=== PATIENT | female | born 1995 | race Caucasian/White ===

== ENCOUNTER 2016-12-09 13:55 | Emergency (ER) | payer BC, SELFPAY ==
[~2016-12-09] VITALS: Ht 160 cm; Wt 68.9 kg
[2016-12-09 13:56] VITALS: BP 134/78
== END 2016-12-09 14:27 | disposition home or self-care (01) ==
LOC: M ED 14:23
DX: R59.0 Localized enlarged lymph nodes (principal)

== ENCOUNTER → 2017-08-06 | Outpatient (REF) | payer OTHER, MEDICAID ==
[2017-08-06 14:02] LABS: BASO # 0.1 10^3/uL (0.0-0.2); BASO % 0.7 % (0.0-1.0); EOS # 0.2 10^3/uL (0.0-0.50); EOS % 2.5 % (0.0-3.0); IMMATURE GRANULOCYTE % 0.4 % (0-0); LYMPH # 1.8 10^3/uL (1.5-6.5); LYMPH % 25.4 % (24.0-44.0); MEAN CORPUSCULAR HEMOGLOBIN 29.1 pg (27.0-33.0); MEAN CORPUSCULAR HGB CONC 32.8 g/dl (32.0-36.5); MEAN CORPUSCULAR VOLUME 88.8 fl (80.0-96.0); MONO # 0.4 10^3/uL (0.0-0.8); MONO % 5.3 % (0.0-5.0); NEUTROPHILS # 4.6 10^3/uL (1.8-7.7); NEUTROPHILS % 65.7 % (36.0-66.0); PLATELET COUNT, AUTOMATED 295 10^3/uL (150-450); WHITE BLOOD COUNT 6.9 10^3/uL (4.0-10.0)
[2017-08-06 14:17] LABS: ALBUMIN 3.7 GM/DL (3.2-5.2); ALKALINE PHOSPHATASE 80 U/L (45-117); ALT/SGPT 20 U/L (12-78); ANION GAP 8 MEQ/L (8-16); AST/SGOT 9 U/L (7-37); BILIRUBIN,TOTAL 0.3 MG/DL (0.2-1.0); BLOOD UREA NITROGEN 10 MG/DL (7-18); CALCIUM LEVEL 8.8 MG/DL (8.5-10.1); CARBON DIOXIDE LEVEL 26 MEQ/L (21-32); CHLORIDE LEVEL 106 MEQ/L (98-107); CREATININE FOR GFR 0.81 MG/DL (0.55-1.02); GLUCOSE, FASTING 120 MG/DL (70-105); POTASSIUM SERUM 3.8 MEQ/L (3.5-5.1); SODIUM LEVEL 140 MEQ/L (136-145); TOTAL PROTEIN 7.4 GM/DL (6.4-8.2)
[2017-08-06 14:48] LABS: ERYTHROCYTE SEDIMENTATION RATE 56 mm/hr (0-20)
== END ==
LOC: M LAB REF 13:19
PROVIDERS: ATTEND Nurse Practitioner Adult Health
DX: M25.50 Pain in unspecified joint (principal)

== ENCOUNTER 2018-04-25 21:25 | Emergency (ER) | payer OTHER, MEDICAID ==
[2018-04-26] MEDS: CYCLOBENZAPRINE 5MG TABLET PO (00:20)
== END 2018-04-26 00:38 | disposition home or self-care (01) ==
LOC: M ED 21:25
DX: M62.830 Muscle spasm of back (principal)
CPT/HCPCS: 99282

== ENCOUNTER → 2018-05-01 | Outpatient (CLI) | payer OTHER ==
[2018-05-01 22:38] LABS: FREE THYROXINE INDEX 4.4 % (1.3-4.8); T UPTAKE 35 % (30-39); THYROXINE (T4) 12.7 UG/DL (4.5-12.0)
[2018-05-04 00:06] LABS: THYROID STIMULATING IMMUNOGLOB <0.10 IU/L (0.00-0.55)
== END ==
LOC: M LAB 14:46
DX: E66.3 Overweight (principal)
CPT/HCPCS: 84443

== ENCOUNTER 2018-07-21 03:42 | Emergency (ER) | payer OTHER, SELFPAY ==
[2018-07-21 07:21] LABS: BASO # 0.1 10^3/uL (0.0-0.2); BASO % 0.4 % (0.0-1.0); EOS # 0.2 10^3/uL (0.0-0.50); EOS % 1.5 % (0.0-3.0); HEMATOCRIT 40.8 % (36.0-47.0); HEMOGLOBIN 13.6 g/dl (12.0-15.5); IMMATURE GRANULOCYTE % 0.5 % (0-3.0); LYMPH # 2.9 10^3/uL (1.5-6.5); MEAN CORPUSCULAR HEMOGLOBIN 28.7 pg (27.0-33.0); MEAN CORPUSCULAR HGB CONC 33.3 g/dl (32.0-36.5); MEAN CORPUSCULAR VOLUME 86.1 fl (80.0-96.0); MONO # 0.7 10^3/uL (0.0-0.8); MONO % 5.8 % (0.0-5.0); NEUTROPHILS # 7.4 10^3/uL (1.8-7.7); NEUTROPHILS % 65.8 % (36.0-66.0); PLATELET COUNT, AUTOMATED 269 10^3/uL (150-450); RED BLOOD COUNT 4.74 10^6/uL (4.00-5.40); RED CELL DISTRIBUTION WIDTH 12.1 % (11.5-14.5); WHITE BLOOD COUNT 11.2 10^3/uL (4.0-10.0)
[2018-07-21 07:38] LABS: D-DIMER QUANT 272.22 ng/ml (<500)
[2018-07-21 07:45] LABS: ALBUMIN 3.8 GM/DL (3.2-5.2); ALBUMIN/GLOBULIN RATIO 1.12 (1.00-1.93); ALKALINE PHOSPHATASE 72 U/L (45-117); ALT/SGPT 19 U/L (12-78); ANION GAP 8 MEQ/L (8-16); AST/SGOT 15 U/L (7-37); BILIRUBIN,DIRECT < 0.1 MG/DL (0.0-0.2); BILIRUBIN,TOTAL 0.3 MG/DL (0.2-1.0); BLOOD UREA NITROGEN 9 MG/DL (7-18); C REACTIVE PROTEIN QUANTITATIV 0.89 MG/DL (0.00-0.30); CALCIUM LEVEL 8.8 MG/DL (8.5-10.1); CARBON DIOXIDE LEVEL 23 MEQ/L (21-32); CHLORIDE LEVEL 108 MEQ/L (98-107); CK-MB VALUE MASS < 1.0 NG/ML (<3.6); CPK CREATINE PHOSPHOKINASE 65 U/L (26-192); GLOMERULAR FILTRATION RATE > 60.0 (>60); GLUCOSE, FASTING 83 MG/DL (70-100); LIPASE 110 U/L (73-393); MB/CK RELATIVE INDEX 1.54 (< OR =4); POTASSIUM SERUM 4.1 MEQ/L (3.5-5.1); SODIUM LEVEL 139 MEQ/L (136-145); TOTAL PROTEIN 7.2 GM/DL (6.4-8.2); TROPONIN I < 0.02 NG/ML (< 0.10)
[2018-07-21 07:55] LABS: ERYTHROCYTE SEDIMENTATION RATE 29 mm/hr (0-20)
[2018-07-21] MEDS ORDERED: NS 1,000 ML IV (08:30)
== END 2018-07-21 08:59 | disposition home or self-care (01) ==
LOC: M ED 03:42
DX: R07.1 Chest pain on breathing (principal); R06.00 Dyspnea, unspecified; M35.9 Systemic involvement of connective tissue, unspecified; M19.072 Primary osteoarthritis, left ankle and foot
CPT/HCPCS: 93005

== ENCOUNTER → 2018-08-01 | Outpatient (CLI) | payer OTHER ==
[2018-08-01 18:02] LABS: BASO % 0.4 % (0.0-1.0); EOS # 0.1 10^3/uL (0.0-0.50); EOS % 1.3 % (0.0-3.0); HEMATOCRIT 41.4 % (36.0-47.0); HEMOGLOBIN 13.7 g/dl (12.0-15.5); IMMATURE GRANULOCYTE % 0.5 % (0-3.0); LYMPH % 20.5 % (24.0-44.0); MEAN CORPUSCULAR HEMOGLOBIN 28.8 pg (27.0-33.0); MEAN CORPUSCULAR HGB CONC 33.1 g/dl (32.0-36.5); MEAN CORPUSCULAR VOLUME 87.2 fl (80.0-96.0); MONO # 0.6 10^3/uL (0.0-0.8); MONO % 6.2 % (0.0-5.0); NEUTROPHILS # 6.8 10^3/uL (1.8-7.7); NEUTROPHILS % 71.1 % (36.0-66.0); PLATELET COUNT, AUTOMATED 271 10^3/uL (150-450); RED BLOOD COUNT 4.75 10^6/uL (4.00-5.40); RED CELL DISTRIBUTION WIDTH 12.2 % (11.5-14.5); WHITE BLOOD COUNT 9.5 10^3/uL (4.0-10.0)
[2018-08-01 20:54] LABS: CHLAMYDIA DNA AMPLIFICATION NEGATIVE (NEGATIVE); GC DNA AMPLIFICATION NEGATIVE (NEGATIVE)
[2018-08-02 12:44] LABS: HEPATITIS C VIRUS ABY INDEX 0.1 INDEX (<0.8)
[2018-08-02 12:44] LABS: HBsAg Prenatal NEGATIVE (NEGATIVE); HIV 1&2 SCREEN CENTAUR NEGATIVE (NEGATIVE); RUBELLA IgG QUALITATIVE IMMUNE (IMMUNE)
== END ==
LOC: M SMT 11:00
DX: Z36.89 Encounter for other specified antenatal screening (principal)
CPT/HCPCS: 86762

== ENCOUNTER 2018-08-13 20:36 | Emergency (ER) | payer OTHER ==
[~2018-08-13] VITALS: Ht 157.5 cm; Wt 74.5 kg
[~2018-08-13 20:36] MED LIST: CYCL5TAB PO; PRED20TA PO
[2018-08-13] MEDS ORDERED: PREN1CHW PO (21:57)
[2018-08-13 21:59] LABS: BASO # 0.1 10^3/uL (0.0-0.2); BASO % 0.4 % (0.0-1.0); EOS # 0.3 10^3/uL (0.0-0.50); HEMATOCRIT 37.8 % (36.0-47.0); LYMPH # 2.5 10^3/uL (1.5-6.5); LYMPH % 21.8 % (24.0-44.0); MEAN CORPUSCULAR HEMOGLOBIN 29.5 pg (27.0-33.0); MEAN CORPUSCULAR HGB CONC 34.4 g/dl (32.0-36.5); MEAN CORPUSCULAR VOLUME 85.7 fl (80.0-96.0); MONO # 0.7 10^3/uL (0.0-0.8); MONO % 6.1 % (0.0-5.0); NEUTROPHILS # 7.7 10^3/uL (1.8-7.7); NEUTROPHILS % 68.3 % (36.0-66.0); PLATELET COUNT, AUTOMATED 246 10^3/uL (150-450); RED BLOOD COUNT 4.41 10^6/uL (4.00-5.40); WHITE BLOOD COUNT 11.3 10^3/uL (4.0-10.0)
[2018-08-13 22:23] LABS: CK-MB VALUE MASS < 1.0 NG/ML (<3.6); CPK CREATINE PHOSPHOKINASE 98 U/L (26-192); MB/CK RELATIVE INDEX 1.02 (< OR =4); TROPONIN I < 0.02 NG/ML (< 0.10)
[2018-08-13 22:30] VITALS: BP 108/71
--- NOTE | 2018-08-14 14:56 | ECGEPIP ---
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
== END 2018-08-13 22:55 | disposition home or self-care (01) ==
LOC: M ED 20:36
DX: O99.341 Other mental disorders complicating pregnancy, first trimester (principal); F41.1 Generalized anxiety disorder; R06.00 Dyspnea, unspecified; Z3A.09 9 weeks gestation of pregnancy

== ENCOUNTER → 2018-08-30 | Outpatient (CLI) | payer OTHER ==
[~2018-08-30] MED LIST changes: +PREN1CHW PO
== END ==
LOC: M SMT 08:32
PROVIDERS: ATTEND Advanced Practice Midwife
DX: Z34.81 Encounter for supervision of other normal pregnancy, first trimester (principal)

== ENCOUNTER → 2018-10-30 | Outpatient (CLI) | payer OTHER ==
--- NOTE | 2018-10-30 17:50 | REP ---
Clinical: Anatomical evaluation. Comparison: None . Findings: Examination demonstrates a single live intrauterine in variable presentation. motion is identified by technologist. Placenta is noted anterior and grade grade 1 without evidence for placenta previa or abruption. Amniotic fluid volume is normal. Cervix measures 4.7 cm in length and appears closed. No evidence for nuchal cord. Gestational age by LMP 21 weeks 2 days with SUKHI 03/10/2019 . Gestational age by current measurements 22 weeks 0 days with SUKHI 03/05/2019 . FHR equals 136 beats per minute. BPD 5.5 cm 22 weeks 4 days HC 18.8 cm 21 weeks 0 days AC 17.4 cm 22 weeks 2 days FL 4.0 cm 22 weeks 5 days HL 3.3 cm 21 weeks 2 days HC/AC ratio 1.08 Estimated weight 497 grams ( 83rd percentile). Anatomical assessment demonstrates normal structures including cranium, choroid plexus, cavum, cerebellum/posterior fossa, facial features, lungs, four-chamber heart/ventricular outflow tracts, diaphragm, stomach, cord insertion/three-vessel cord, kidneys/bladder, spine, and extremities. Impression: Single live intrauterine in variable presentation demonstrating appropriate interval growth. 2. Anatomical assessment is complete and normal. No gross abnormalities are identified. Electronically Signed by Gabriel Dennis MD 10/30/2018 05:40 P
== END ==
LOC: M RAD 10:23
PROVIDERS: ATTEND Advanced Practice Midwife
DX: O99.342 Other mental disorders complicating pregnancy, second trimester (principal); Z3A.22 22 weeks gestation of pregnancy

== ENCOUNTER → 2018-11-05 | Outpatient (REF) | payer OTHER | LOC: M LAB REF 16:59 | PROVIDERS: ATTEND Advanced Practice Midwife | DX: Z34.82 Encounter for supervision of other normal pregnancy, second trimester (principal) ==

== ENCOUNTER → 2018-12-12 | Outpatient (CLI) | payer OTHER ==
[2018-12-12 14:06] LABS: BASO # 0.1 10^3/uL (0.0-0.2); BASO % 0.4 % (0.0-1.0); EOS # 0.2 10^3/uL (0.0-0.50); EOS % 1.7 % (0.0-3.0); LYMPH % 14.6 % (24.0-44.0); MEAN CORPUSCULAR HEMOGLOBIN 29.1 pg (27.0-33.0); MEAN CORPUSCULAR HGB CONC 32.4 g/dl (32.0-36.5); MEAN CORPUSCULAR VOLUME 89.9 fl (80.0-96.0); MONO # 1.1 10^3/uL (0.0-0.8); MONO % 7.8 % (0.0-5.0); NEUTROPHILS # 9.9 10^3/uL (1.8-7.7); NEUTROPHILS % 72.9 % (36.0-66.0); PLATELET COUNT, AUTOMATED 261 10^3/uL (150-450); RED BLOOD COUNT 3.78 10^6/uL (4.00-5.40); WHITE BLOOD COUNT 13.5 10^3/uL (4.0-10.0)
== END ==
LOC: M SMT 08:45
PROVIDERS: ATTEND Advanced Practice Midwife
DX: Z34.82 Encounter for supervision of other normal pregnancy, second trimester (principal); Z3A.00 Weeks of gestation of pregnancy not specified

== ENCOUNTER 2019-01-02 16:57 | Outpatient (CLI) | payer OTHER ==
[~2019-01-02] VITALS: Ht 157.5 cm; Wt 86.2 kg
[2019-01-02 17:17] VITALS: BP 111/58
[2019-01-02] MEDS ORDERED: TUMS750C5 PO (17:21)
[2019-01-02] MEDS ORDERED: ONDANSETRON 4 MG ORAL DISINTEGRATING TAB (Q0162 PER 1MG) SL PRN (17:45)
[2019-01-02 17:59] LABS: HEMATOCRIT 34.3 % (36.0-47.0); HEMOGLOBIN 11.2 g/dl (12.0-15.5); MEAN CORPUSCULAR HEMOGLOBIN 28.9 pg (27.0-33.0); MEAN CORPUSCULAR HGB CONC 32.7 g/dl (32.0-36.5); MEAN CORPUSCULAR VOLUME 88.4 fl (80.0-96.0); PLATELET COUNT, AUTOMATED 244 10^3/uL (150-450); RED BLOOD COUNT 3.88 10^6/uL (4.00-5.40); WHITE BLOOD COUNT 12.1 10^3/uL (4.0-10.0)
[2019-01-02 18:28] LABS: ALBUMIN 2.5 GM/DL (3.2-5.2); ALT/SGPT 15 U/L (12-78); AMYLASE 38 U/L (25-115); BILIRUBIN,TOTAL 0.2 MG/DL (0.2-1.0); BLOOD UREA NITROGEN 5 MG/DL (7-18); CALCIUM LEVEL 8.4 MG/DL (8.5-10.1); CARBON DIOXIDE LEVEL 22 MEQ/L (21-32); CHLORIDE LEVEL 108 MEQ/L (98-107); GLOMERULAR FILTRATION RATE > 60.0 (>60); GLUCOSE, FASTING 126 MG/DL (70-100); LIPASE 119 U/L (73-393); POTASSIUM SERUM 3.6 MEQ/L (3.5-5.1); SODIUM LEVEL 139 MEQ/L (136-145); TOTAL PROTEIN 7.3 GM/DL (6.4-8.2)
[2019-01-02] MEDS ORDERED: ONDA4TAB6 SL (19:35)
[2019-01-02] MEDS ORDERED: LACTATED RINGER'S 1000 ML IV STA (19:47)
[2019-01-02 20:44] VITALS: BP 100/57
[2019-01-02 20:53] LABS: APPEARANCE, URINE CLEAR (CLEAR); BACTERIA, URINE AUTO NEGATIVE (NEGATIVE); BILIRUBIN, URINE AUTO NEGATIVE (NEGATIVE); BLOOD, URINE BLOOD NEGATIVE (NEGATIVE); COLOR, URINE YELLOW (YELLOW); GLUCOSE, URINE (UA) AUTO NEGATIVE (NEGATIVE); KETONE, URINE AUTO NEGATIVE (NEGATIVE); LEUKOCYTE ESTERASE, URINE AUTO NEGATIVE (NEGATIVE); MUCUS, URINE SMALL (NEGATIVE); NITRITE, URINE AUTO NEGATIVE (NEGATIVE); PROTEIN, URINE AUTO NEGATIVE (NEGATIVE); RBC, URINE AUTO 0 /HPF (0-3); SPECIFIC GRAVITY URINE AUTO 1.009 (1.002-1.035); SQUAMOUS EPITHELIAL CELL UR AU 0 /HPF (0-6); UROBILINOGEN, URINE AUTO 0.2 mg/dL (0.0-2.0); WBC, URINE AUTO 2 /HPF (0-3)
== END 2019-01-02 20:55 | disposition home or self-care (01) ==
LOC: M LDO 16:57
PROVIDERS: ATTEND Obstetrics & Gynecology
DX: O21.2 Late vomiting of pregnancy (principal)
CPT/HCPCS: 36415; 59025; 76815; 80053; 81001; 82150; 83690; 85027; 87086; 96360; Q0162

== ENCOUNTER 2019-02-10 04:49 | Outpatient (CLI) | payer OTHER ==
[~2019-02-10] VITALS: Ht 157.5 cm; Wt 91.6 kg
[~2019-02-10 04:49] MED LIST changes: +ONDA4TAB6 SL; +TUMS750C5 PO
[2019-02-10 05:04] VITALS: BP 124/67
[2019-02-10 07:06] VITALS: BP 124/71
--- NOTE | 2019-02-10 11:56 | IPNPDOC ---
Text Note Date of Service The patient was seen on 02/10/19. NOTE Subjective: Patient is a 23-year-old female who is a at 35.2 weeks gestation. She initiated care in her first trimester at [facility]. Her has been complicated by anxiety. She he reports having an earache, anxiety, and pelvic pain making it difficult to sleep. Reports her pain is sharp and shooting her her right hip area and gets worse when she is turning side to side in bed. S he hasn't taken anything to help with her pain. She reports irregular contractions. Patient also complaining of anxiety that has gotten worse with occasional panic attacks. She desires to start taking something for anxiety. She denies suicidal thought or ideations. She denies homicidal thoughts. She denies depression but reports increased anxiety. Objective: FHR is 130, moderate variability, positive accelerations, no decelerations. Contractions: irregular. SVE: FT/thick/high, soft, midposition. A+Ox3. Respiratory: regular rate with no use of accessory muscles. Abdomen: gravid and non tender to touch. Extremities: generalized edema without pitting and no clonus. Skin: no rash noted on her back. Assessment: IUP at 35.2 weeks gestation, generalized anxiety, pelvic pain, not in labor, Category I FHR tracing. Plan: Reviewed medication options with patient. She has decided on Zoloft. Will start patient on Zoloft 25 mg daily. Reviewed side effects of medication including but not limited to suicidal ideations, GI effects, and decreased sexual desire. Patient instructed to not abruptly stop taking medication. Reviewed comfort measures for hip pain. She was advised to take Tylenol for ear pain and if it does not improve she needs to see PCP or urgent care to be e valuated. Reviewed comfort measures for sleeping. Patient may take Benadryl to help with her itching on her back and to help her sleep. Patient is to follow-up for routine OB appointment on Sunday. Reviewed labor signs, kick count, and danger signs to report. VS,Fishbone, I+O VS, Fishbone, I+O Vital Signs Date Time Temp Pulse Resp B/P (MAP) Pulse Ox O2 Delivery O2 Flow Rate FiO2 02/10/19 07:06 99.0 92 124/71 (88) 02/10/19 07:05 16 ALY CRISOSTOMO CNM Feb 10, 2019 11:56
== END 2019-02-10 07:56 | disposition home or self-care (01) ==
LOC: M LDO 04:49
PROVIDERS: ATTEND Obstetrics & Gynecology
DX: O26.893 Other specified pregnancy related conditions, third trimester (principal); R10.30 Lower abdominal pain, unspecified; O99.89 Other specified diseases and conditions complicating pregnancy, childbirth and the puerperium; H92.09 Otalgia, unspecified ear; O99.345 Other mental disorders complicating the puerperium; F41.9 Anxiety disorder, unspecified; O47.03 False labor before 37 completed weeks of gestation, third trimester; Z3A.35 35 weeks gestation of pregnancy

== ENCOUNTER → 2019-02-17 | Outpatient (REF) | payer OTHER ==
[~2019-02-17] MED LIST changes: +BENA25CA4 PO
== END ==
LOC: M LAB REF 12:43
PROVIDERS: ATTEND Advanced Practice Midwife
DX: Z34.83 Encounter for supervision of other normal pregnancy, third trimester (principal)

== ENCOUNTER → 2019-02-18 | Outpatient (CLI) | payer OTHER ==
[~2019-02-18] MED LIST changes: +ACET160S3 PO; +AUGM500T34 PO; +CHERLOZ MT
--- NOTE | 2019-02-18 16:48 | REP ---
Clinical: Growth evaluation. Comparison: 10/30/2018 . Findings: Examination demonstrates a single live intrauterine in cephalic presentation. motion is identified by technologist. Placenta is noted anterior and grade one without evidence for placenta previa or abruption. Amniotic fluid volume is normal. Cervix appears closed. Gestational age by LMP 37 weeks 1 day with SUKHI 03/10/2019 . Gestational age by current measurements 38 weeks 5 days with SUKHI 02/27/2019 . FHR equals 144 beats per minute. BPD 9.6 cm 39 weeks 0 days HC 33.5 cm 38 weeks 3 days AC 35.9 cm 39 weeks 6 days FL 7.4 cm 37 weeks 4 days HL 6.7 cm 39 weeks 1 day HC/AC ratio 0.93 Estimated weight 3687 grams ( 89th percentile). Amniotic fluid index: 13.1 cm (7.5 - 24.4) Umbilical cord SD ratio: 2.25 (1.60 - 2.60). Impression: Single live intrauterine in cephalic presentation demonstrating appropriate interval growth. Electronically Signed by Gabriel Dennis MD 02/18/2019 04:39 P
== END ==
LOC: M RAD 15:38
PROVIDERS: ATTEND Advanced Practice Midwife
DX: O26.843 Uterine size-date discrepancy, third trimester (principal); Z3A.39 39 weeks gestation of pregnancy

== ENCOUNTER 2019-02-26 21:19 | Outpatient (CLI) | payer OTHER ==
[~2019-02-26] VITALS: Ht 157.5 cm; Wt 92.4 kg
[~2019-02-26 21:19] MED LIST changes: -ACET160S3 PO; -AUGM500T34 PO; -BENA25CA4 PO; -CHERLOZ MT
[2019-02-26 21:41] VITALS: BP 136/80
[2019-02-26] MEDS ORDERED: BENA25CA4 PO (21:55)
--- NOTE | 2019-02-26 22:26 | IPN ---
DATE: 02/26/2019 Carlos A is a 23-year-old, 1, para 0, at 37-4/7 weeks gestation, estimated date of confinement (EDC) of 03/15/2019 based on first-trimester ultrasound presents to labor and delivery today with a question of rupture of membranes at approximately 1845. Reports she had a large gush of fluid, some scant fluid following that. Denies any regular painful contractions, vaginal bleeding. The fetus has been active. care was initiated at [facility] in the first trimester. course complicated by anxiety with initiating Zoloft treatment approximately 1 month ago and joint hypermobility. OBSTETRICAL HISTORY: Primigravida. OBSTETRIC LABORATORIES: AB positive, antibody screen negative. Rubella immune. VDRL nonreactive. Urine culture: No growth. Hepatitis B surface antigen negative, HIV negative, hepatitis C antibody nonreactive. Gonorrhea and chlamydia negative. Panorama testing negative for aneuploidy. Male fetus. Gestational diabetic screening normal at 102. GBS is negative. Urine culture: No growth. PAST MEDICAL HISTORY: 1. Anxiety. 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 SURGERIES: None. FAMILY HISTORY: Diabetes, hypertension, breast cancer. SOCIAL HISTORY: The patient is single; however the father of the baby is at bedside and supportive. She is a nonsmoker. Denies alcohol and drug use. No history of any sexually transmitted infections and denies history of abuse, physical, sexual, and emotional. ALLERGIES: No known drug allergies. CURRENT MEDICATIONS: Zoloft 25 mg daily and vitamin daily. OBJECTIVE: Blood pressure (BP) is 136/80. She is alert and oriented times three. She is in no apparent distress. She is smiling and talkative. The heart rate is 135 with moderate variability. Positive accelerations. No decelerations observed. An occasional contraction. Sterile speculum exam: Negative Valsalva. Negative pooling. Negative Nitrazine. Negative ferning. Sterile vaginal exam: 1 cm dilated, 50% effaced, -3 station, posterior, soft. No bloody show with the exam. ASSESSMENT: Intrauterine at 37-4/7 weeks. heart rate category 1. Not in labor and not ruptured. PLAN: Discharge the patient home. I reviewed signs and symptoms of active labor, kick counts, and other danger signs to report. I reviewed access to care. She is to keep her next appointment, which is scheduled in approximately 6 days from now. The patient and her partner have had all their questions answered and agree with the plan.
== END 2019-02-26 22:17 | disposition home or self-care (01) ==
LOC: M LDO 21:19
PROVIDERS: ATTEND Advanced Practice Midwife
DX: O26.892 Other specified pregnancy related conditions, second trimester (principal); N89.8 Other specified noninflammatory disorders of vagina; Z3A.37 37 weeks gestation of pregnancy

== ENCOUNTER 2019-03-04 15:59 | Emergency (ER) | payer OTHER ==
[~2019-03-04] VITALS: Ht 160 cm; Wt 92.6 kg
[2019-03-04 15:59] VITALS: BP 122/79
[~2019-03-04 15:59] MED LIST changes: +BENA25CA4 PO
[2019-03-04] MEDS ORDERED: ACET160S3 PO (16:05)
[2019-03-05] MEDS ORDERED: CHERLOZ MT (16:36)
== END 2019-03-04 16:55 | disposition admitted as inpatient to this hospital (09) ==
LOC: M ED 15:59
DX: O99.413 Diseases of the circulatory system complicating pregnancy, third trimester (principal); R07.9 Chest pain, unspecified; Z3A.38 38 weeks gestation of pregnancy; Z79.899 Other long term (current) drug therapy

== ENCOUNTER 2019-03-04 16:55 | Outpatient (CLI) | payer OTHER ==
[~2019-03-04] VITALS: Ht 160 cm; Wt 92.5 kg
[~2019-03-04 16:55] MED LIST changes: +ACET160S3 PO
[2019-03-04 17:10] VITALS: BP 112/68
[2019-03-04 17:24] VITALS: BP 113/67
[2019-03-04 17:34] VITALS: BP 112/73
[2019-03-04 17:44] VITALS: BP 109/75
[2019-03-04 17:54] VITALS: BP 107/71
[2019-03-05] MEDS ORDERED: CHERLOZ MT (16:36)
== END 2019-03-04 19:20 | disposition home or self-care (01) ==
LOC: M LDO 16:55
PROVIDERS: ATTEND Specialist
DX: O99.89 Other specified diseases and conditions complicating pregnancy, childbirth and the puerperium (principal); J02.9 Acute pharyngitis, unspecified; R07.9 Chest pain, unspecified; R63.0 Anorexia; R51 Headache; Z3A.38 38 weeks gestation of pregnancy

== ENCOUNTER 2019-03-05 16:05 | Inpatient (IN) | payer OTHER ==
[~2019-03-05] VITALS: Ht 157.5 cm; Wt 92.7 kg
[2019-03-05] VITALS (10 sets, daily range): BP systolic 111–137; BP diastolic 68–79
[2019-03-05] MEDS ORDERED: CHERLOZ MT (16:36)
[2019-03-05] MEDS: miSOPROStol 50 MCG 1/2 TAB (S0191) PO SCH ×2 (17:05→21:17)
[2019-03-05 17:10] LABS: HEMATOCRIT 34.3 % (36.0-47.0); HEMOGLOBIN 10.7 g/dl (12.0-15.5); MEAN CORPUSCULAR HGB CONC 31.2 g/dl (32.0-36.5); MEAN CORPUSCULAR VOLUME 83.5 fl (80.0-96.0); PLATELET COUNT, AUTOMATED 234 10^3/uL (150-450); RED BLOOD COUNT 4.11 10^6/uL (4.00-5.40); WHITE BLOOD COUNT 14.9 10^3/uL (4.0-10.0)
--- NOTE | 2019-03-05 17:12 | HPE ---
DATE OF ADMISSION: 03/05/2019 Carlos A is a 23-year-old 1, para 0 at 38-4/7 weeks gestation, estimated date of confinement (EDC) of 03/15/2019 based on first trimester ultrasound. She presents to labor and delivery today following a routine appointment, in which she requested a cervical exam, and during that exam she had spontaneous rupture of membranes. She does report some scant bloody show, continued leakage. The fetus has been active. She does deny contractions. care was initiated [facility] in the first trimester. Her course complicated by a history of anxiety, in which she started Zoloft 25 mg, and joint hypermobility OBSTETRICAL HISTORY: Primigravida. OBSTETRIC LABORATORIES: AB positive, antibody screen negative, rubella immune, VDRL nonreactive. Urine culture: No growth. Hepatitis B surface antigen negative, HIV negative. Hepatitis C antibody nonreactive. Gonorrhea and chlamydia negative. Panorama testing: Low risk for aneuploidy male fetus. Gestational diabetic screening normal at 102, and GBS is negative. PAST MEDICAL HISTORY: 1. Anxiety. 2. Hypermobility joints. SURGERIES: None. FAMILY HISTORY: Diabetes, hypertension, breast cancer, and brain abnormality in the mother. SOCIAL HISTORY: The patient is single; however, the father of the baby is at bedside and appears supportive. She is a nonsmoker. She denies alcohol and drug use. No history of any sexually transmitted infections and denies history of abuse, physical, sexual, and emotional. ALLERGIES: No known drug allergies. CURRENT MEDICATIONS: - Zoloft 25 mg by mouth daily - vitamin daily OBJECTIVE: Vital signs: Complete set has not been taken. Blood pressure is 111/68. She is alert and oriented times three. She does not appear in any discomfort. She is smiling and talkative. heart rate is 145 with moderate variability. Positive accelerations, no decelerations. There is no pattern of contractions. Her abdomen is gravid, cephalic presentation. Estimated weight 3800 grams to 3900 grams. Sterile vaginal exam: Clear fluid noted draining from the vagina, 2 cm dilated, 25% effaced, -3 station, posterior. Scant bloody show with the exam. ASSESSMENT: Intrauterine at 38-4/7 weeks. heart rate is category 1. Premature rupture of membranes. PLAN: Admit the patient to labor and delivery. Routine labs. Out of bed ad darrius. Regular diet at this time. The patient requested an epidural when she is uncomfortable in active labor. I do plan to start misoprostol 50 mcg by mouth for cervical ripening. Will likely augment or initiate labor with Pitocin. I did review risks, benefits, and alternatives with the patient and her family. All of their questions have been answered. She has been verbally consented for emergency surgery as well as blood products if necessary. I do anticipate cervical ripening.
[2019-03-05] MEDS ORDERED: LACTATED RINGER'S 1000 ML IV ONE (17:15)
[2019-03-06] VITALS (42 sets, daily range): BP systolic 95–133; BP diastolic 54–78
[2019-03-06] MEDS: miSOPROStol 50 MCG 1/2 TAB (S0191) PO SCH (02:44)
[2019-03-06] MEDS ORDERED: OXYTOCIN DRIP 30 UNITS in APPROPRIATE DILUENT 1 EA IV SCH ×2 (08:30→17:24)
--- NOTE | 2019-03-06 08:32 | IPNPDOC ---
Obstetrical Progress Note Date of Service Mar 06, 2019 Subjective Pt doing well, starting to feel more uncomfortable with contractions. Continues to leak clear fluid Objective Vital Signs Date Time Temp Pulse Resp B/P (MAP) Pulse Ox O2 Delivery O2 Flow Rate FiO2 03/06/19 07:44 98.0 104 16 123/75 (91) Assessment Heart Rate (FHR): 130 Variability: Moderate Accelerations: Positive Decelerations: None Heart Rate Tracing: Category I Tocometer Contractions: Yes Frequency: regular, every 1-5 min. Sterile Vaginal Examination Dilation: 4 cm Effacement (%): 80% Station: -2 Cervical Consistency: Soft Cervical Position: Middle Assessment and Plan Additional Comments 23 yo G1 at 38 5/7 undergoing IOL for SROM SVE now favorable, will start pitocin FWB reassuring GBS negative COREY SABA PGY-3 Mar 06, 2019 08:32
[2019-03-06] MEDS: LR 1,000 ML IV SCH ×2 (10:05→16:52)
[2019-03-06] MEDS ORDERED: FENTANYL 2MCG/ML ROPIVACAINE 0.2% IN 0.9% NACL 100ML IVBAG As Ordered ONE (10:19)
[2019-03-06] MEDS ORDERED: EPIDURAL COMMENT XX SCH (11:00)
[2019-03-06] MEDS ORDERED: EPIDURAL/PCA KEYS XX PRN (11:00)
[2019-03-06] MEDS ORDERED: REFRIGERATOR IV KEYS XX PRN (11:00)
[2019-03-06] MEDS ORDERED: ONDANSETRON 4MG/2ML VIAL (J2405) IV PRN (11:00)
[2019-03-06] MEDS ORDERED: diphenhydrAMINE INJ 50MG/ML VIAL (J1200) IV PRN (11:00)
[2019-03-06] MEDS ORDERED: FENTANYL/ROPIVACAINE/NACL BAG 100 ML EPIDURAL SCH (11:00)
[2019-03-06] MEDS ORDERED: NALOXONE INJ 0.4 MG/1 ML VIAL (J2310) IV PRN (11:00)
[2019-03-06] MEDS ORDERED: ePHEDrine SULFATE 25 MG/5 ML(5MG/ML) SYRINGE IV PRN (11:00)
[2019-03-06] MEDS ORDERED: IBUPROFEN 600 MG TAB PO PRN (17:30)
[2019-03-06] MEDS ORDERED: ACETAMINOPHEN 500 MG TAB PO PRN (17:30)
[2019-03-06] MEDS ORDERED: ANUSOL HC CREAM 30GM TOP PRN (17:30)
[2019-03-06] MEDS ORDERED: MEASLES,MUMPS,RUBELLA VACCINE INJ (MMR-II) (90707) SC SCH (17:30)
[2019-03-06] MEDS ORDERED: DIBUCAINE 1% OINTMENT 30GM TOP PRN (17:30)
[2019-03-06] MEDS ORDERED: RHOGAM 300 MCG (1500 IU) INJ (J2790) IM SCH (17:30)
[2019-03-06] MEDS ORDERED: ACETAMINOPHEN TAB 650MG DOSE (2X325MG) PO PRN (17:30)
[2019-03-06] MEDS ORDERED: METHYLERGONOVINE MALEATE 0.2 MG TAB PO PRN (17:30)
[2019-03-06] MEDS ORDERED: MOM 30ML SUSPENSION UDC PO PRN (17:30)
[2019-03-06] MEDS ORDERED: DOCUSATE SODIUM 100 MG CAP PO PRN (17:30)
--- NOTE | 2019-03-06 17:37 | DNPDOC ---
[facility] Delivery Note Delivery Note DATE OF DELIVERY: 03/06/19 PREDELIVERY DIAGNOSIS: 39 6/7 weeks' gestation and labor. POST DELIVERY DIAGNOSIS: Delivered. PROCEDURE: Spontaneous vaginal delivery. MANAGER SCHOOL: Dr. Whaley, Dr. Galloway ANESTHESIA: Epidural ESTIMATED BLOOD LOSS: 350 mL. FINDINGS: 3250g , Score 9/9, nuchal cord times 1. DELIVERY SUMMARY: Patient is a 23 yo G1 who presented at 39 5/7 wks with SROM. She underwent induction of labor. She was started on pitocin this morning and her labor progressed. She became fully dilated at 1645. She pushed for 30 min and delivered a liveborn male infant over a 2nd degree laceration. Tight nuchal cord x1, delivered through. Baby to maternal abdomen. Cord clamped after 30 s delay. Placenta delivered spontaneously, in tact. 2nd degree repaired in usual fashion with 3-0 vicryl. Small periurethral on the R repaired with 4-0 vicryl. All counts correct. COREY GALLOWAY PGY-3 Mar 06, 2019 17:37
[2019-03-06] MEDS ORDERED: SLF 3 ML SYR IV PRN (18:45)
[2019-03-06] MEDS: IBUPROFEN 800 MG TAB PO PRN (18:49)
[2019-03-06] MEDS: SLF 3 ML SYR IV SCH (22:30)
[2019-03-07 06:00] VITALS: BP 111/62
[2019-03-07] MEDS: SLF 3 ML SYR IV SCH ×2 (06:27→14:00)
[2019-03-07] MEDS: PRENATAL VITAMINS CHEWABLE TABLET PO SCH (07:18)
--- NOTE | 2019-03-07 07:29 | NUR ---
PPD#1 S: Doing well w/o complaints. Decrease lochia. Pain well controlled. O: vss, AF gen: well appearing abd: soft, nttp, FF@u-2 ext: neg calf tenderness A/P: 23yo s/p NSD recovering in stable condition -cont routine care -d/c plans for tomorrow Bria Whaley MD
[2019-03-07] MEDS: IBUPROFEN 800 MG TAB PO PRN (10:39)
[2019-03-07] MEDS: CETIRIZINE (ZyrTEC) 10 MG TAB PO SCH (12:00)
[2019-03-07] MEDS: AMOXICILLIN 500 MG CAP PO SCH ×2 (14:34→22:17)
[2019-03-07 18:00] VITALS: BP 117/62
[2019-03-08] MEDS: IBUPROFEN 800 MG TAB PO PRN (03:18)
[2019-03-08] MEDS: AMOXICILLIN 500 MG CAP PO SCH (06:10)
[2019-03-08 06:32] VITALS: BP 114/66
[2019-03-08] MEDS: PRENATAL VITAMINS CHEWABLE TABLET PO SCH (08:07)
[2019-03-08] MEDS: CETIRIZINE (ZyrTEC) 10 MG TAB PO SCH (08:07)
[2019-03-09] MEDS ORDERED: AUGM500T34 PO (02:27)
== END 2019-03-08 11:43 | disposition home or self-care (01) | DRG 560 ==
LOC: M LDI 16:05 → M OBS 03-06 20:20
PROVIDERS: ADMIT Advanced Practice Midwife; ATTEND Obstetrics & Gynecology
PROC: 10E0XZZ Delivery of Products of Conception, External Approach (ICD-10-PCS; principal; 2019-03-06)
PROC: 0KQM0ZZ Repair Perineum Muscle, Open Approach (ICD-10-PCS; 2019-03-06)
DX: O42.02 Full-term premature rupture of membranes, onset of labor within 24 hours of rupture (principal); O99.344 Other mental disorders complicating childbirth; F41.9 Anxiety disorder, unspecified; Z3A.38 38 weeks gestation of pregnancy; O69.1XX0 Labor and delivery complicated by cord around neck, with compression, not applicable or unspecified; O70.1 Second degree perineal laceration during delivery; Z37.0 Single live birth

== ENCOUNTER 2019-03-09 00:15 | Emergency (ER) | payer OTHER ==
[~2019-03-09] VITALS: Ht 160 cm; Wt 89.7 kg
[~2019-03-09 00:15] MED LIST changes: +CHERLOZ MT
[2019-03-09] MEDS ORDERED: AUGM500T34 PO (02:27)
[2019-03-09] MEDS ORDERED: cefTRIAXone SOD 1 GM VIAL (J0696) IM ONE (02:30)
[2019-03-09] MEDS ORDERED: ANEXSIA, NORCO 7.5MG/325MG TABLET(HYDROCODONE/APAP) PO ONE (02:30)
[2019-03-09] MEDS ORDERED: LIDOCAINE 1% SDV 5 ML VIAL DILUENT ONE (02:30)
[2019-03-09 02:36] VITALS: BP 114/68
== END 2019-03-09 02:42 | disposition home or self-care (01) ==
LOC: M ED 00:15
DX: H66.93 Otitis media, unspecified, bilateral (principal); Z79.2 Long term (current) use of antibiotics; Z79.899 Other long term (current) drug therapy
CPT/HCPCS: 96372; 99283; J0696

== ENCOUNTER → 2019-07-29 | Outpatient (REF) | payer OTHER ==
[~2019-07-29] MED LIST changes: +AUGM500T34 PO
[2019-07-29 12:47] LABS: BASO # 0.1 10^3/uL (0.0-0.2); BASO % 0.7 % (0.0-1.0); EOS # 0.2 10^3/uL (0.0-0.5); EOS % 3.2 % (0.0-3.0); HEMATOCRIT 41.9 % (36.0-47.0); HEMOGLOBIN 13.2 g/dl (12.0-15.5); LYMPH # 2.5 10^3/uL (1.5-5.0); LYMPH % 32.8 % (24.0-44.0); MEAN CORPUSCULAR HGB CONC 31.5 g/dl (32.0-36.5); MEAN CORPUSCULAR VOLUME 82.5 fl (80.0-96.0); MONO # 0.5 10^3/uL (0.0-0.8); MONO % 6.4 % (0.0-5.0); NEUTROPHILS # 4.2 10^3/uL (1.5-8.5); NEUTROPHILS % 56.4 % (36.0-66.0); PLATELET COUNT, AUTOMATED 301 10^3/uL (150-450); RED BLOOD COUNT 5.08 10^6/uL (4.00-5.40); WHITE BLOOD COUNT 7.5 10^3/uL (4.0-10.0)
[2019-07-29 13:00] LABS: ALBUMIN 3.7 GM/DL (3.2-5.2); ALT/SGPT 43 U/L (12-78); BILIRUBIN,TOTAL 0.2 MG/DL (0.2-1.0); BLOOD UREA NITROGEN 8 MG/DL (7-18); CALCIUM LEVEL 8.8 MG/DL (8.5-10.1); CARBON DIOXIDE LEVEL 23 MEQ/L (21-32); CHLORIDE LEVEL 111 MEQ/L (98-107); CHOLESTEROL LEVEL 144 MG/DL (<200); CREATININE FOR GFR 0.75 MG/DL (0.55-1.30); FREE T4 1.02 NG/DL (0.76-1.46); GLOMERULAR FILTRATION RATE > 60.0 (>60); GLUCOSE, FASTING 100 MG/DL (70-100); HDL CHOLESTEROL 50 MG/DL (>40); IRON (FE) 37 UG/DL (50-170); LDL CHOLESTEROL 79 MG/DL (<100); NON-HDL-C 94 MG/DL; POTASSIUM SERUM 4.5 MEQ/L (3.5-5.1); SODIUM LEVEL 140 MEQ/L (136-145); TOTAL PROTEIN 7.1 GM/DL (6.4-8.2); TRIGLYCERIDES LEVEL 73 MG/DL (<150)
[2019-07-29 13:03] LABS: FOLATE 9.3 NG/ML; TOTAL 25(OH) VITAMIN D 26.3 NG/ML (30.0-100.0); VITAMIN B12 LEVEL 443 PG/ML
[2019-07-29 13:08] LABS: HEMOGLOBIN A1c 5.7 %
== END ==
LOC: M LAB REF 11:56
PROVIDERS: ATTEND Nurse Practitioner Family
DX: E66.9 Obesity, unspecified (principal); Z13.9 Encounter for screening, unspecified

== ENCOUNTER 2019-10-10 13:09 | Emergency (ER) | payer OTHER ==
[~2019-10-10] VITALS: Ht 160 cm; Wt 88.2 kg
[2019-10-10 14:25] LABS: BASO % 0.4 % (0.0-1.0); EOS % 0.7 % (0.0-3.0); HEMATOCRIT 47.5 % (36.0-47.0); HEMOGLOBIN 15.2 g/dl (12.0-15.5); LYMPH # 1.2 10^3/uL (1.5-5.0); LYMPH % 26.2 % (24.0-44.0); MEAN CORPUSCULAR VOLUME 81.3 fl (80.0-96.0); MONO # 0.5 10^3/uL (0.0-0.8); MONO % 11.7 % (0.0-5.0); NEUTROPHILS # 2.7 10^3/uL (1.5-8.5); NEUTROPHILS % 60.3 % (36.0-66.0); PLATELET COUNT, AUTOMATED 253 10^3/uL (150-450); RED BLOOD COUNT 5.84 10^6/uL (4.00-5.40); WHITE BLOOD COUNT 4.5 10^3/uL (4.0-10.0)
[2019-10-10 14:50] LABS: ALBUMIN 4.3 GM/DL (3.2-5.2); BILIRUBIN,DIRECT 0.2 MG/DL (0.0-0.2); BILIRUBIN,TOTAL 0.5 MG/DL (0.2-1.0); TOTAL PROTEIN 7.9 GM/DL (6.4-8.2)
--- NOTE | 2019-10-10 15:34 | REP ---
Clinical: Generalized diffuse abdominal pain. Technique: Two supine views of the abdomen and pelvis. Findings: Bowel gas pattern is nonspecific. No organomegaly. No abnormal calcifications. Skeletal structures are intact. Impression: Nonspecific abdominal radiographs. Electronically Signed by Gabriel Dennis MD 10/10/2019 03:24 P
[2019-10-10 17:46] VITALS: BP 114/77
== END 2019-10-10 17:48 | disposition home or self-care (01) ==
LOC: M ED 13:09
DX: R10.84 Generalized abdominal pain (principal); R11.2 Nausea with vomiting, unspecified; R19.7 Diarrhea, unspecified; R73.03 Prediabetes; Z79.899 Other long term (current) drug therapy

== ENCOUNTER → 2020-10-28 | Outpatient (REF) | payer OTHER ==
[2020-10-28 13:22] LABS: HEMOGLOBIN A1c 5.2 %
[2020-10-28 13:31] LABS: ALT/SGPT 32 U/L (12-78); BILIRUBIN,TOTAL 0.5 MG/DL (0.2-1.0); BLOOD UREA NITROGEN 14 MG/DL (7-18); CARBON DIOXIDE LEVEL 26 MEQ/L (21-32); CHLORIDE LEVEL 107 MEQ/L (98-107); CHOLESTEROL LEVEL 149 MG/DL (<200); CHOLESTEROL RISK RATIO 3.386 (<5); CREATININE FOR GFR 0.83 MG/DL (0.55-1.30); GLOMERULAR FILTRATION RATE > 60.0 (>60); GLUCOSE, FASTING 88 MG/DL (70-100); HDL CHOLESTEROL 44 MG/DL (>40); LDL CHOLESTEROL 93 MG/DL (<100); NON-HDL-C 105 MG/DL; POTASSIUM SERUM 4.2 MEQ/L (3.5-5.1); SODIUM LEVEL 139 MEQ/L (136-145); TOTAL PROTEIN 7.4 GM/DL (6.4-8.2); TRIGLYCERIDES LEVEL 61 MG/DL (<150)
== END ==
LOC: M LAB REF 12:41
PROVIDERS: ATTEND Family Medicine Addiction Medicine
DX: Z68.35 Body mass index [BMI] 35.0-35.9, adult (principal)

== ENCOUNTER → 2021-02-25 | Outpatient (CLI) | payer OTHER, MEDICAID ==
[2021-03-01 06:08] LABS: 17 HYDROXY PROGESTERONE 42 ng/dL (.); TESTOSTERONE FREE (DIRECT) 5.5 pg/mL (0.0-4.2)
== END ==
LOC: M PLALAB 09:34
PROVIDERS: ATTEND Obstetrics & Gynecology
DX: N92.1 Excessive and frequent menstruation with irregular cycle (principal)

== ENCOUNTER 2021-12-20 17:29 | Emergency (ER) | payer MEDICAID, OTHER ==
[~2021-12-20] VITALS: Ht 157.5 cm; Wt 86.3 kg
[2021-12-20 19:44] LABS: BASO # 0.1 10^3/uL (0.0-0.2); BASO % 0.5 % (0.0-1.0); EOS # 0.1 10^3/uL (0.0-0.5); EOS % 0.7 % (0.0-3.0); HEMOGLOBIN 15.1 g/dl (12.0-15.5); LYMPH # 2.6 10^3/uL (1.5-5.0); LYMPH % 26.8 % (24.0-44.0); MEAN CORPUSCULAR HGB CONC 33.6 g/dl (32.0-36.5); MEAN CORPUSCULAR VOLUME 86.4 fl (80.0-96.0); MONO # 0.6 10^3/uL (0.0-0.8); MONO % 5.9 % (2.0-8.0); NEUTROPHILS # 6.4 10^3/uL (1.5-8.5); NEUTROPHILS % 65.7 % (36.0-66.0); RED BLOOD COUNT 5.21 10^6/uL (4.00-5.40); WHITE BLOOD COUNT 9.7 10^3/uL (4.0-10.0)
[2021-12-20 20:12] LABS: BLOOD UREA NITROGEN 9 MG/DL (7-18); CALCIUM LEVEL 9.2 MG/DL (8.5-10.1); CARBON DIOXIDE LEVEL 25 MEQ/L (21-32); CHLORIDE LEVEL 109 MEQ/L (98-107); CREATININE FOR GFR 0.82 MG/DL (0.55-1.30); GLOMERULAR FILTRATION RATE > 60.0 (>60); GLUCOSE, FASTING 84 MG/DL (70-100); POTASSIUM SERUM 4.8 MEQ/L (3.5-5.1); SODIUM LEVEL 139 MEQ/L (136-145)
[2021-12-20 21:39] LABS: FREE T4 1.09 NG/DL (0.76-1.46)
[2021-12-20 22:17] VITALS: BP 113/77
== END 2021-12-20 22:24 | disposition home or self-care (01) ==
LOC: M ED 17:29
DX: R42 Dizziness and giddiness (principal)

== ENCOUNTER → 2022-04-04 | Outpatient (CLI) | payer OTHER, MEDICAID | LOC: M SOG 14:36 | PROVIDERS: ATTEND Orthopaedic Surgery Hand Surgery | DX: M79.642 Pain in left hand (principal) ==

== ENCOUNTER → 2023-02-16 | Outpatient (CLI) | payer OTHER | LOC: M RAD 14:40 | PROVIDERS: ATTEND Physician Assistant Medical | DX: M25.571 Pain in right ankle and joints of right foot (principal); M25.572 Pain in left ankle and joints of left foot ==

== ENCOUNTER 2023-03-17 16:07 | Emergency (ER) | payer OTHER ==
[~2023-03-17] VITALS: Ht 157.5 cm; Wt 95.4 kg
[2023-03-17 16:07] VITALS: BP 141/80; TEMP 98.1; O2SAT 97
== END 2023-03-17 20:46 | disposition home or self-care (01) ==
LOC: M ED 16:07
DX: S93.402A Sprain of unspecified ligament of left ankle, initial encounter (principal); X50.0XXA Overexertion from strenuous movement or load, initial encounter; Y92.89 Other specified places as the place of occurrence of the external cause; Y93.01 Activity, walking, marching and hiking; Y99.0 Civilian activity done for income or pay; M54.9 Dorsalgia, unspecified; F41.9 Anxiety disorder, unspecified; F32.A Depression, unspecified; Z79.899 Other long term (current) drug therapy

== ENCOUNTER → 2023-07-09 | Outpatient (REF) | payer OTHER ==
[2023-07-09 18:47] LABS: HEMOGLOBIN A1c 5.1 % (4.0-6.0)
[2023-07-09 18:57] LABS: BLOOD UREA NITROGEN 10 MG/DL (9-23); CALCIUM LEVEL 9.1 MG/DL (8.5-10.1); CARBON DIOXIDE LEVEL 26 MMOL/L (20-31); CHLORIDE LEVEL 104 MMOL/L (98-107); CREATININE FOR GFR 0.74 MG/DL (0.55-1.30); GLOMERULAR FILTRATION RATE > 60.0 (>60); GLUCOSE, FASTING 76 MG/DL (60-100); POTASSIUM SERUM 4.4 MMOL/L (3.5-5.1); SODIUM LEVEL 139 MMOL/L (136-145)
[2023-07-09 18:59] LABS: THYROID STIMULATING HORMONE 1.074 uIU/ML (0.55-4.78)
== END ==
LOC: M LAB REF 17:57
PROVIDERS: ATTEND Nurse Practitioner Family
DX: E66.9 Obesity, unspecified (principal)

== ENCOUNTER → 2023-09-10 | Outpatient (REF) | payer OTHER ==
[2023-09-10 12:39] LABS: RSV AMPLIFICATION NEGATIVE (NEGATIVE)
== END ==
LOC: M LAB REF 11:33
PROVIDERS: ATTEND Physician Assistant Medical
DX: M79.10 Myalgia, unspecified site (principal)

== ENCOUNTER → 2023-09-18 | Outpatient (CLI) | payer OTHER | LOC: M CARPUL 10:17 | PROVIDERS: ATTEND Nurse Practitioner Family | DX: Z76.89 Persons encountering health services in other specified circumstances (principal) ==

== ENCOUNTER → 2023-11-08 | Outpatient (REF) | payer OTHER ==
[2023-11-08 13:40] LABS: BASO % 0.5 % (0.0-1.0); EOS # 0.1 10^3/uL (0.0-0.5); EOS % 1.2 % (0.0-3.0); HEMATOCRIT 42.9 % (36.0-47.0); HEMOGLOBIN 14.2 g/dl (12.0-15.5); LYMPH # 2.1 10^3/uL (1.5-5.0); LYMPH % 28.9 % (24.0-44.0); MEAN CORPUSCULAR HEMOGLOBIN 28.9 pg (27.0-33.0); MEAN CORPUSCULAR HGB CONC 33.1 g/dl (32.0-36.5); MEAN CORPUSCULAR VOLUME 87.2 fl (80.0-96.0); MONO # 0.4 10^3/uL (0.0-0.8); MONO % 5.9 % (2.0-8.0); NEUTROPHILS # 4.6 10^3/uL (1.5-8.5); NEUTROPHILS % 63.1 % (36.0-66.0); PLATELET COUNT, AUTOMATED 248 10^3/uL (150-450); RED BLOOD COUNT 4.92 10^6/uL (4.00-5.40); WHITE BLOOD COUNT 7.3 10^3/uL (4.0-10.0)
[2023-11-08 13:55] LABS: ERYTHROCYTE SEDIMENTATION RATE 31 mm/hr (0-20)
[2023-11-08 14:00] LABS: ALBUMIN 3.9 G/DL (3.2-5.2); ALKALINE PHOSPHATASE 76 U/L (46-116); ALT/SGPT 44 U/L (7.0-40); AST/SGOT 22 U/L (<34); BILIRUBIN,TOTAL 0.5 MG/DL (0.3-1.2); BLOOD UREA NITROGEN 11 MG/DL (9-23); CALCIUM LEVEL 8.9 MG/DL (8.5-10.1); CARBON DIOXIDE LEVEL 26 MMOL/L (20-31); CHLORIDE LEVEL 106 MMOL/L (98-107); CREATININE FOR GFR 0.75 MG/DL (0.55-1.30); GLOMERULAR FILTRATION RATE > 60.0 (>60); GLUCOSE, FASTING 77 MG/DL (60-100); POTASSIUM SERUM 4.7 MMOL/L (3.5-5.1); SODIUM LEVEL 139 MMOL/L (136-145)
[2023-11-08 14:01] LABS: RHEUMATOID FACTOR QUANT 3.6 IU/ML (<14)
== END ==
LOC: M LAB REF 12:37
PROVIDERS: ATTEND Nurse Practitioner Family
DX: R69 Illness, unspecified (principal)

== ENCOUNTER 2024-02-08 11:45 | Outpatient (RCR) | payer OTHER ==
[~2024-02-08 11:45] MED LIST changes: +ONDA-282 SL; -ONDA4TAB6 SL
== END 2024-02-17 ==
LOC: M PT 11:45
PROVIDERS: ATTEND Nurse Practitioner Family
DX: M35.7 Hypermobility syndrome (principal)

== ENCOUNTER → 2024-02-12 | Outpatient (CLI) | payer OTHER | LOC: M SOG 07:48 | PROVIDERS: ATTEND Physician Assistant | DX: M25.571 Pain in right ankle and joints of right foot (principal) ==

== ENCOUNTER → 2024-02-22 | Outpatient (CLI) | payer OTHER | LOC: M RAD 10:52 | PROVIDERS: ATTEND Nurse Practitioner Family | DX: M79.644 Pain in right finger(s) (principal) ==

== ENCOUNTER 2024-03-11 09:15 | Outpatient (RCR) | payer OTHER | END 2024-03-19 | LOC: M PT 09:15 | PROVIDERS: ATTEND Nurse Practitioner Family | DX: M35.7 Hypermobility syndrome (principal) ==

== ENCOUNTER → 2024-07-21 | Outpatient (REF) ==
[~2024-07-21] MED LIST changes: -CYCL5TAB PO; +CYCL5TAB4 PO
== END ==
LOC: M EMP 08:50
PROVIDERS: ATTEND Family Medicine
DX: Z20.828 Contact with and (suspected) exposure to other viral communicable diseases (principal)

== ENCOUNTER → 2024-07-25 | Outpatient (REF) | payer OTHER | LOC: M LAB REF 16:17 | PROVIDERS: ATTEND Nurse Practitioner Family | DX: J06.9 Acute upper respiratory infection, unspecified (principal) ==

== ENCOUNTER → 2024-08-29 | Outpatient (REF) | payer OTHER ==
[2024-08-29 14:40] LABS: BASO # 0.1 10^3/uL (0.0-0.2); BASO % 0.7 % (0.0-1.0); EOS # 0.2 10^3/uL (0.0-0.5); EOS % 2.2 % (0.0-3.0); HEMATOCRIT 44.1 % (36.0-47.0); HEMOGLOBIN 14.3 g/dl (12.0-15.5); LYMPH # 2.3 10^3/uL (1.5-5.0); LYMPH % 31.3 % (24.0-44.0); MEAN CORPUSCULAR HEMOGLOBIN 28.5 pg (27.0-33.0); MEAN CORPUSCULAR HGB CONC 32.4 g/dl (32.0-36.5); MONO # 0.5 10^3/uL (0.0-0.8); MONO % 6.1 % (2.0-8.0); NEUTROPHILS # 4.4 10^3/uL (1.5-8.5); NEUTROPHILS % 59.3 % (36.0-66.0); PLATELET COUNT, AUTOMATED 303 10^3/uL (150-450); RED BLOOD COUNT 5.01 10^6/uL (4.00-5.40); WHITE BLOOD COUNT 7.4 10^3/uL (4.0-10.0)
[2024-08-29 15:15] LABS: THYROID STIMULATING HORMONE 1.149 uIU/ML (0.55-4.78)
[2024-08-29 15:16] LABS: BLOOD UREA NITROGEN 13 MG/DL (9-23); CALCIUM LEVEL 9.1 MG/DL (8.5-10.1); CARBON DIOXIDE LEVEL 28 MMOL/L (20-31); CHLORIDE LEVEL 108 MMOL/L (98-107); CHOLESTEROL LEVEL 168 MG/DL (<200); CHOLESTEROL RISK RATIO 3.38 (<5); CREATININE FOR GFR 0.73 MG/DL (0.55-1.30); GLOMERULAR FILTRATION RATE > 60.0 (>60); GLUCOSE, FASTING 89 MG/DL (60-100); HDL CHOLESTEROL 49.6 MG/DL (>40); LDL CHOLESTEROL 104.8 MG/DL (<100); NON-HDL-C 118.4 MG/DL; POTASSIUM SERUM 4.5 MMOL/L (3.5-5.1); SODIUM LEVEL 142 MMOL/L (136-145); TRIGLYCERIDES LEVEL 68 MG/DL (<150)
[2024-08-29 15:18] LABS: FOLLICLE STIMULATING HORMONE 5.4 mIU/ML
[2024-08-29 15:40] LABS: HEMOGLOBIN A1c 5.2 % (4.0-6.0)
== END ==
LOC: M LAB REF 12:28
PROVIDERS: ATTEND Nurse Practitioner Family
DX: L70.0 Acne vulgaris (principal); Z68.36 Body mass index [BMI] 36.0-36.9, adult; Z13.6 Encounter for screening for cardiovascular disorders

== ENCOUNTER → 2024-09-15 | Outpatient (REF) | LOC: M EMP 08:34 | PROVIDERS: ATTEND Family Medicine | DX: Z11.52 Encounter for screening for COVID-19 (principal) ==

== ENCOUNTER → 2024-12-25 | Outpatient (REF) | payer OTHER ==
[2024-12-25 19:03] LABS: HCG, SERUM QUALITATIVE NEGATIVE (NEGATIVE)
== END ==
LOC: M LAB REF 17:26
PROVIDERS: ATTEND Family Medicine Addiction Medicine
DX: N92.6 Irregular menstruation, unspecified (principal)

== ENCOUNTER → 2025-06-02 | Outpatient (REF) | payer OTHER, MEDICAID | LOC: M LAB REF 11:43 | PROVIDERS: ATTEND Nurse Practitioner Family | DX: N90.89 Other specified noninflammatory disorders of vulva and perineum (principal); J06.9 Acute upper respiratory infection, unspecified ==